=== PATIENT | male | born 1995 | race Caucasian/White ===

== ENCOUNTER 2025-10-22 18:50 | Observation (INO) | payer SELFPAY ==
[2025-10-22 18:54] VITALS: BP 163/60; PULSE 90; RESP 20; TEMP 36.8; O2SAT 97; BMI 49.6
--- NOTE | 2025-10-22 19:10 | CT_ITS ---
PROCEDURE INFORMATION: Exam: CT Abdomen And Pelvis With Contrast Exam date and time: 10/22/2025 7:59 PM Age: 29 years old Clinical indication: Abdominal pain; Additional info: Bilateral flank pain, pyelo v ureterolithiasis TECHNIQUE: Imaging protocol: Computed tomography of the abdomen and pelvis with contrast. Radiation optimization: All CT scans at this facility use at least one of these dose optimization techniques: automated exposure control; mA and/or kV adjustment per patient size (includes targeted exams where dose is matched to clinical indication); or iterative reconstruction. Contrast material: ISOVUE; Contrast volume: 75 ml; Contrast route: IV; COMPARISON: No relevant prior studies available. FINDINGS: Liver: Diffuse hypoattenuation of the liver compatible with mild hepatic steatosis. Gallbladder and biliary ducts: Normal. No calcified stones. No ductal dilation. Pancreas: Normal. No ductal dilation. Spleen: Normal. No splenomegaly. Adrenal glands: Normal. No mass. Kidneys and ureters: No nephrolithiasis or calcific densities of the renal collecting system. No hydronephrosis. Normal and symmetric enhancement of the kidneys. Stomach and bowel: Unremarkable. No obstruction. No mucosal thickening. Appendix: No evidence of appendicitis. Intraperitoneal space: Unremarkable. No free air. No significant fluid collection. Vasculature: Unremarkable. No abdominal aortic aneurysm. Lymph nodes: Unremarkable. No enlarged lymph nodes. Urinary bladder: Unremarkable as visualized. Reproductive: Unremarkable as visualized. Bones/joints: Unremarkable. No acute fracture. Soft tissues: Normal. IMPRESSION: No nephrolithiasis or calcific densities of the renal collecting system. No hydronephrosis. Normal and symmetric enhancement of the kidneys.
--- NOTE | 2025-10-22 19:13 | HMH.EDGENADL ---
Discharge Plan Referrals Follow up/Referrals: Provider,Referral, [Primary Care Provider, Medical] - See instructions Clinical Impressions Clinical Impression: Acute pyelonephritis Instructions Patient Instructions: DI for Low Back Pain Print Language Print Language: Divehi Discharge ED Provider: Dayday Sy General Adult HPI General Chief complaint: Back Pain/Injury Stated complaint: lower back pain reoccuring nauseated Time Seen by Provider: 10/22/25 19:04 Mode of Arrival: Ambulatory Source of Information: Patient and Spouse Description of Symptoms (Recalled from ER Triage Doc. by RN): patient presents to the ED for bilateral flank pain that started Friday. he went to [facility] and the only thing they did was a urine test, d/c him with antibiotics qwhich hes been taking as prescribed. he has been taking naproxen and ibuprofen around the clock. initially it was just right sided, but now its bilateral. he rates the pain a 9/10 and stated he has had severe nausea and extremly painful urination since his initial ED visit. History of Present Illness HPI narrative: Adriel Causey is a 29-year-old male who presents to the emergency department for complaints of bilateral flank pain. Patient states that over the last 3 weeks, he has had worsening pain with urination and progressively worsening back pain. He states that he was seen on Friday at [facility] where they only tested his urine and told him he had a kidney infection. He has been taking levofloxacin and alternating naproxen and ibuprofen since then without relief. He states that now, he has pain on both sides of his back and it has kept him from sleeping. He has no relief with NSAIDs. He denies any fever. He reports dark urine and has significant burning with urination. He denies any history of urinary tract fractions prior to this. He also reports some mild upper abdominal pain. He states that he previously drank alcohol but has not drank recently. He does smoke tobacco. Related Data Allergies Allergy/AdvReac Type Severity Reaction Status Date / Time From [facility] Allergy Unknown I-RASH Uncoded 10/28/17 14:56 [facility] Disclaimer: The information contained in this section may have been updated after the patient was seen, as this information can be updated by other users. Social History Smoking Status: Current every day smoker alcohol intake: former current occupational status: employed Travel in the last 8 weeks?: None ROS Obtained: Yes Systems reviewed as appropriate & no additional complaints except as documented Physical Exam General General appearance: alert Comment: Appears uncomfortable Head Head exam: atraumatic Eye Eye exam: Present normal appearance ENT ENT exam: Present normal external ear exam Neck Neck exam: Present full ROM Chest Chest inspection: Present symmetric chest wall rise Respiratory Respiratory exam: Present normal lung sounds bilaterally; Absent respiratory distress, wheezes or stridor Cardiovascular Cardiovascular exam: Present regular rate and normal rhythm Abdominal Exam Abdominal exam: Present soft; Absent tenderness or guarding exam: Present deferred Extremities Exam Extremities exam: Present normal inspection Back Exam Back exam: Present normal inspection, CVA tenderness (R) and CVA tenderness (L) Neurological Exam Neurological exam: Present alert and oriented X3 Psychiatric Psychiatric exam: Present normal affect Skin Skin exam: Present warm and dry Medical Decision Making Medical Records Screening: Per USPSTF and CDC recommendations, given the prevalence of disease in our region, it is our hospital?s policy to screen for HIV and viral Hepatitis for all patients aged 18 and over and those with ongoing risk factors. Neftali Inquiry Pt receiving controlled substance: No Vital Signs: 10/22/25 18:54 10/22/25 19:30 10/22/25 19:31 Temperature 98.2 F Temperature Source Oral Pulse Rate 88 86 Pulse Rate [Right Radial] 90 Respiratory Rate 20 Blood Pressure Blood Pressure [Right Arm] 163/60 H Blood Pressure Mean Blood Pressure Mean [Right Arm] 94 Blood Pressure Source [Right Arm] Automatic Cuff Blood Pressure Position [Right Arm] Sitting 02 Sat by Pulse Oximetry 97 96 98 Oxygen Delivery Method Room Air Room Air Room Air 10/22/25 19:31 10/22/25 20:04 Temperature Temperature Source Pulse Rate 94 H Pulse Rate [Right Radial] Respiratory Rate Blood Pressure 141/44 H Blood Pressure [Right Arm] Blood Pressure Mean 76 Blood Pressure Mean [Right Arm] Blood Pressure Source [Right Arm] Blood Pressure Position [Right Arm] 02 Sat by Pulse Oximetry 95 Oxygen Delivery Method Room Air Lab Data Lab Results 10/22/25 19:04: Urine Color Yellow, Urine Appearance Clear, Urine pH 7.0, Ur Specific [place] 1.025, Urine Protein Negative, Urine Glucose (UA) Negative, Urine Ketones Negative, Urine Blood Trace-i, Urine Nitrate Negative, Urine Bilirubin Negative, Urine Urobilinogen 0.2, Ur Leukocyte Esterase 2+ A, Urine RBC Occasional, Urine WBC 10-20, Ur Squamous Epith Cells None, Urine Bacteria Trace, Urine Trichomonas 1+ 10/22/25 19:12: WBC 14.0 H, RBC 4.91, Hgb 14.8, Hct 44.8, MCV 91.2, MCH 30.1, MCHC 33.0, RDW 13.3, Plt Count 393, MPV 9.7, Neut % (Auto) 71.7, Lymph % (Auto) 18.1, [place] % (Auto) 7.1, Eos % (Auto) 2.1, Baso % (Auto) 0.4, Neut # (Auto) 10.0 H, Lymph # (Auto) 2.5, [place] # (Auto) 1.0, Eos # (Auto) 0.3, Baso # (Auto) 0.1, Sodium 141, Potassium 3.8, Chloride 105, Carbon Dioxide 26, Anion Gap 13.8, BUN 17, Creatinine 1.10, Estimated Creat Clear 79, Estimated GFR 79, Est GFR ( Amer) 95, Glucose 107 H, Calcium 8.9, Total Bilirubin 0.4, AST 37, ALT 46, Alkaline Phosphatase 102, C-Reactive Protein 18.4 H, Total Protein 8.5 H, Albumin 5.0, Globulin 3.5 H, Albumin/Globulin Ratio 1.4, Lipase 66 10/22/25 19:30: Lactate 0.8 10/22/25 19:12 10/22/25 19:12 Orders (Tests/Meds): ED MEDICATIONS Generic Name Dose Route Start Last Admin Trade Name Freq PRN Reason Stop Dose Admin Ceftriaxone Sodium 2 gm/ 100 mls @ 200 mls/hr 10/22/25 20:49 Sodium Chloride IV 10/22/25 21:18 ONCE ONE Sodium Chloride 10 ml 10/22/25 20:00 10/22/25 20:01 Sodium Chloride 0.9% 10ml Syr (Rad Only) IV 11/21/25 19:59 10 ml NEEDED PRN Administration Maintain IV Site Discontinued Medications Generic Name Dose Route Start Last Admin Trade Name Freq PRN Reason Stop Dose Admin Hydromorphone HCl 0.25 mg 10/22/25 19:10 10/22/25 19:28 Hydromorphone 2mg/Ml Syringe IV 10/22/25 19:11 0.25 mg ONCE ONE Administration Hydromorphone HCl 0.5 mg 10/22/25 20:46 Hydromorphone 2mg/Ml Syringe IV 10/22/25 20:47 ONCE ONE Lactated Ringer's 1,000 mls @ 999 mls/hr 10/22/25 19:14 10/22/25 20:42 Lactated Ringer's 1000 Ml Bag IV 10/22/25 20:14 Infused .Q1H1M ONE Infusion Iopamidol 75 ml 10/22/25 20:00 10/22/25 20:01 Iopamidol-370 (76%);100ml Bottle IV 10/22/25 20:01 75 ml ONCE ONE Administration Metronidazole 2,000 mg 10/22/25 20:49 Metronidazole 500 Mg Tablet PO 10/22/25 20:50 ONCE ONE Ondansetron HCl 4 mg 10/22/25 19:13 10/22/25 19:29 Ondansetron 4mg/2ml Vial IV 10/22/25 19:14 4 mg ONCE ONE Administration ORDERS Category Date Time Status CT abdomen pelvis w con Stat Cat Scan 10/22/25 19:10 Completed CBC w/Auto Diff [Complete Blood Count Auto Diff] Stat Lab 10/22/25 19:12 Completed CMP [Comprehensive Metabolic Panel] Stat Lab 10/22/25 19:12 Completed CRP [C-Reactive Protein] Stat Lab 10/22/25 19:12 Completed Lactic Acid Stat Lab 10/22/25 19:30 Completed Lipase Stat Lab 10/22/25 19:12 Completed UA [Urinalysis and Microscopic] Stat Lab 10/22/25 19:04 Completed Urine Chlam/Gono/Trich ([facility]) Stat Lab 10/22/25 19:04 Received Blood Culture Stat Micro 10/22/25 20:51 Ordered Urine Culture Stat Micro 10/22/25 19:04 Received Medical Decision Narrative: Adriel Causey is a 29-year-old male who presents to the emergency department for complaints of bilateral flank pain. Patient states that over the last 3 weeks, he has had worsening pain with urination and progressively worsening back pain. He states that he was seen on Friday at [facility] where they only tested his urine and told him he had a kidney infection. He has been taking levofloxacin and alternating naproxen and ibuprofen since then without relief. He states that now, he has pain on both sides of his back and it has kept him from sleeping. He has no relief with NSAIDs. He denies any fever. He reports dark urine and has significant burning with urination. He denies any history of urinary tract fractions prior to this. He also reports some mild upper abdominal pain. He states that he previously drank alcohol but has not drank recently. He does smoke tobacco. On arrival, patient is somewhat hypertensive, heart rate within normal limits, afebrile, breathing carefully on room air with oxygen saturation 97% SpO2. Physical exam, stated above, revealed an uncomfortable appearing male in no respiratory distress. He has bilateral CVA tenderness. No abdominal tenderness to palpation. No abdominal rigidity. Cardiopulmonary exam is unremarkable. Differential diagnosis includes, but is not limited to: Pyelonephritis, ureterolithiasis, acute pancreatitis, GERD, musculoskeletal pain, among others. The most morbid conditions were considered and workup was based on these. Workup in the emergency department included: Hematologic labs, urine studies, CT abdomen pelvis with IV contrast. Patient was hesitant to take any pain medication and preferred to not have morphine due to the way it made him feel. Patient is agreeable to small dose of Dilaudid and Zofran at this time. Will administer 1 L lactated ringer as well. Patient's urinalysis shows a trace blood, nitrite negative with 2+ leukocyte esterase, 10-20 white blood cells, trace bacteria and 1+ urine trichomonas. Will add urine gonorrhea, chlamydia and trichomonas at this time. Laboratory studies show leukocytosis with white blood cell count of 14 but no neutrophilia. Hemoglobin and platelets within normal limits. Patient's CRP is elevated 18.4. Lipase normal at 66. Electrolytes and renal function within normal limits. CT abdomen pelvis with IV contrast was interpreted by me personally. No acute findings, specifically no perinephric fat stranding and no ureterolithiasis/hydronephrosis. See radiology report for details. On reassessment, patient states that he is still in significant pain. He is agreeable with additional pain medicine. Will give 0.5 mg of IV Dilaudid. Urine cultures from outside hospital were obtained and had no significant growth on day 2 (10/19). I do feel that patient symptomatology is most consistent with urinary tract infection given significant white blood cells, and leukocyte esterase positive. Could also be a component of trichomonas. Will treat with 2 g of IV Rocephin and 2 g of oral metronidazole. Patient significant other at the bedside will also be given a paper prescription for treatment of trichomonas with a 7-day course of metronidazole twice daily. I do feel that since patient has failed outpatient treatment with oral antibiotics and shows evidence of continued UTI and concern for pyelonephritis clinically with an elevated white blood cell count, I do feel that he would benefit from admission for continued IV antibiotics. He is in agreement with this plan. I did speak with Colette Singer, SHAYNA with the hospital medicine service for admission who is in agreement to admit the patient for further management. Critical Care Critical Care Time Critical Care Time: No
[2025-10-22 19:16] LABS: Microscopic, Urine URINE MICROSCOPIC (MICROSCOPIC)
[2025-10-22 19:17] LABS: Bilirubin,Urine Negative (Negative); Color,Urine YELLOW (Yellow); Glucose,Urine (UA) Negative (Negative); Ketones,Urine Negative (Negative); Leukocyte Esterase,Urine 2+ (Negative); PH,Urine 7.0 (5.0-8.5); Protein,Urine Negative (Negative); Specific Gravity, Urine 1.025 (1.005-1.030); Urobilinogen,Urine 0.2 EU/dl (0.2)
[2025-10-22 19:19] LABS: Hematocrit 44.8 % (42.0-52.0); Hemoglobin 14.8 g/dL (14.1-18.0); Immature Granulocytes % 0.6 %; Mean Corpuscular HGB Conc 33.0 g/dL (31.8-35.4); Mean Corpuscular Hemoglobin 30.1 pg (27.0-31.2); Mean Corpuscular Volume 91.2 fl (80-94); Nucleated Red Blood Cells % 0 %; Platelet Count 393 K/mm3 (142-424); Red Blood Count 4.91 M/mm3 (4.60-6.20); Red Cell Distribution Width-SD 44.9 fL; White Blood Count 14.0 K/mm3 (4.8-10.8)
[2025-10-22] MEDS: HYDROMORPHONE 2MG/ML SYRINGE 0.25 MG IV (19:28)
[2025-10-22] MEDS: LACTATED RINGERS 1000ML 1,000 ML 999 ML IV (19:29)
[2025-10-22] MEDS: ONDANSETRON 4MG/2ML VIAL 4 MG IV (19:29)
[2025-10-22 19:30] VITALS: PULSE 88; O2SAT 96
[2025-10-22 19:31] VITALS: BP 141/44; PULSE 86; O2SAT 98
[2025-10-22 19:32] LABS: Albumin Level 5.0 g/dl (3.5-5.0); Chloride 105 mmol/L (98-107); Potassium 3.8 mmoL/L (3.5-5.1); Sodium 141 mmol/L (136-145)
[2025-10-22 19:34] LABS: Blood Urea Nitrogen 17 mg/dl (9-20); Creatinine Clearance Estimated 79 mL/min (50-200); Creatinine,Serum 1.10 mg/dl (0.66-1.25); Estimated Glomerular Filt Rate 79 ml/min (>60); GFR (African American) 95 ML/MIN (>60)
[2025-10-22 19:35] LABS: Alanine Aminotransferase 46 U/L (12-78); Albumin/Globulin Ratio 1.4 (1.1-1.8); Alkaline Phosphatase 102 U/L (38-126); Anion Gap 13.8 mEq/L (5-15); Aspartate Amino Transferase 37 U/L (17-59); Bilirubin,Total 0.4 mg/dl (0.2-1.3); Calcium 8.9 mg/dl (8.4-10.2); Carbon Dioxide 26 mmol/L (22.0-30.0); Globulin 3.5 g/dL (1.3-3.2); Glucose 107 mg/dl (74-100); Lipase 66 U/L (23-300); Total Protein,Serum 8.5 g/dl (6.3-8.2)
[2025-10-22 19:40] LABS: Bacteria,Urine Trace /lpf; RBC,Urine Occasional #/hpf (0-3); Trichomonas,Urine 1+ /lpf
[2025-10-22 19:41] LABS: C-Reactive Protein 18.4 mg/L (0-4)
[2025-10-22] MEDS: SODIUM CHLORIDE 0.9% 10ML SYR (RAD ONLY) 10 ML IV (20:01)
[2025-10-22] MEDS: IOPAMIDOL-370 (76%);100ML BOTTLE 75 ML IV (20:01)
[2025-10-22 20:04] VITALS: PULSE 94; O2SAT 95
[2025-10-22] MEDS: HYDROMORPHONE 2MG/ML SYRINGE 0.5 MG IV (21:05)
--- NOTE | 2025-10-22 21:27 | P.HP_ITS ---
<Statement entered by Adriel Prasad MD - 10/23/25 10:22> Rounded on patient after nurse practitioner. Personally examined and interviewed patient. Agree with exam findings and care plan as documented. History of Present Illness *Admission Date: 10/22/25 *Reason for visit:: Flank pain and dysuria *History of present illness: 29-year-old male patient presents to ER with reports of low back pain, dark color and strong odor to his urine. For low back pain initially was on the right in the flank area and now goes across both sides of the lower back. Denies fever chills or bodyaches. Has had some nausea and some epigastric pain which she states has been going on for a while. States he has been able to eat and drink okay. Symptoms started about 3 weeks ago. Was seen at an outside hospital emergency department and given Levaquin after being diagnosed with UTI. Reportedly cultures from that visit were negative. Symptoms did not improve and in fact he feels like they have worsened so he came in for further evaluation. He was found to have leukocyte esterase in his urine as well as trichomonas. CT of the abdomen pelvis shows no nephrolithiasis and no hydronephrosis. He is afebrile. ER physician requests admission for failed outpatient treatment of UTI which progressed to pyelonephritis. [facility] Disclaimer: The information contained in this section may have been updated after the patient was seen, as this information can be updated by other users. Medical History (Updated 10/22/25 @ 21:42 by Colette Singer APRN) No significant medical problems Surgical History (Updated 10/22/25 @ 21:32 by Colette Singer APRN) No significant past surgical history Family History (Updated 10/22/25 @ 21:33 by Colette Singer APRN) Father Cancer Other Diabetes Social History (Updated 10/22/25 @ 21:10 by Dayday Sy MD) Smoking Status: Current every day smoker alcohol intake: former current occupational status: employed Travel in the last 8 weeks?: None Have you lived/traveled outside [place] in past 30 days?: No Contact w/someone who lives/traveled outside [place] past 30 days?: No Exposure to someone with infectious disease in past 14 days?: No Do you have a fever (greater than 100.4 F or 38 C)?: No Have you tested positive for COVID-19?: No Exposed to someone with COVID-19 in past 14 days?: No Do you have a sore throat?: No Do you have a cough?: No Do you have any weakness?: No Do you have any diarrhea?: No Are you experiencing any unusual bleeding?: No Do you have any muscle aches/pain?: No Do you have any abdominal pain?: No Are you experiencing loss of taste or smell?: No Review of Systems Constitutional Constitutional: Denies body ache(s), Denies chills and Denies fever(s) Eyes Eyes: Denies blurry vision ENT Ears, Nose, Mouth, and Throat: Denies dizziness, Denies otalgia and Denies sore throat *Cardiovascular Cardiovascular: Denies chest pain and Denies dyspnea *Respiratory Respiratory: Denies cough and Denies dyspnea *Gastrointestinal Gastrointestinal: Reports abdominal pain (Complains of epigastric abdominal pain into the right upper quadrant) and Reports dyspepsia *Genitourinary Genitourinary: Reports dysuria and Reports other (Reports tea-colored urine with a foul odor and flank pain) *Musculoskeletal Musculoskeletal: Denies arthralgias and Reports back pain (Bilateral flank pain) *Neurologic Neurologic: Denies confusion and Denies dizziness Psychiatric Psychiatric: Denies confusion Meds Home Medications and Allergies Home Medications ?Medication ?Instructions ?Recorded ?Confirmed ?Type levofloxacin 250 mg tablet 500 mg PO DAILY 10/22/25 History naproxen 500 mg tablet 500 mg PO BID 10/22/2510/22 History New Prescriptions to Start Prescriptions: Allergies Allergy/AdvReac Type Severity Reaction Status Date / Time From [facility] Allergy Unknown I-RASH Uncoded 10/28/17 14:56 Exam Data for Last 24 hours Vital signs and Labs for Last 24 Hours: Temp Pulse Resp BP Pulse Ox O2 Del Method 98.2 F 94 H 20 141/44 H 95 Room Air 10/22/25 18:54 10/22/25 20:04 10/22/25 18:54 10/22/25 19:31 10/22/25 20:04 10/22/25 20:04 Laboratory Results - last 24 hr 10/22/25 19:04: Urine Color Yellow, Urine Appearance Clear, Urine pH 7.0, Ur Specific [place] 1.025, Urine Protein Negative, Urine Glucose (UA) Negative, Ur ine Ketones Negative, Urine Blood Trace-i, Urine Nitrate Negative, Urine Bilirubin Negative, Urine Urobilinogen 0.2, Ur Leukocyte Esterase 2+ A, Urine RBC Occasional, Urine WBC 10-20, Ur Squamous Epith Cells None, Urine Bacteria Trace, Urine Trichomonas 1+ 10/22/25 19:12: WBC 14.0 H, RBC 4.91, Hgb 14.8, Hct 44.8, MCV 91.2, MCH 30.1, MCHC 33.0, RDW 13.3, Plt Count 393, MPV 9.7, Neut % (Auto) 71.7, Lymph % (Auto) 18.1, [place] % (Auto) 7.1, Eos % (Auto) 2.1, Baso % (Auto) 0.4, Neut # (Auto) 10.0 H, Lymph # (Auto) 2.5, [place] # (Auto) 1.0, Eos # (Auto) 0.3, Baso # (Auto) 0.1, Sodium 141, Potassium 3.8, Chloride 105, Carbon Dioxide 26, Anion Gap 13.8, BUN 17, Creatinine 1.10, Estimated Creat Clear 79, Estimated GFR 79, Est GFR ( Amer) 95, Glucose 107 H, Calcium 8.9, Total Bilirubin 0.4, AST 37, ALT 46, Alkaline Phosphatase 102, C-Reactive Protein 18.4 H, Total Protein 8.5 H, Albumin 5.0, Globulin 3.5 H, Albumin/Globulin Ratio 1.4, Lipase 66 10/22/25 19:30: Lactate 0.8 I & O for Last 24 hours: Intake & Output 10/19/25 10/20/25 10/21/25 10/22/25 23:59 23:59 23:59 23:59 Intake Total 1000 / 1000 Balance 1000 / 1000 Weight 127.006 kg Constitutional Constitutional: no acute distress *Routine HEENT Exam Head: Present normocephalic and atraumatic Eye: Present PERRL ENT: Present mucous membranes moist *Routine Neck Exam Neck: Present supple *Routine Respiratory Exam Respiratory: Present CTA bilaterally *Routine Cardiovascular Exam Cardiovascular: Present RRR, Normal S1 and Normal S2 *Routine Abdominal Exam Abdominal: Present soft, normoactive bowel sounds and tenderness (Tender epigastric and right upper quadrant, tender to pannus to palpation of the bilateral flank) *Routine Rectal Exam Rectal:: deferred *Routine Genitalia Exam Genitalia:: deferred *Routine Extremities Exam Extremities: Present pulses intact; Absent edema *Routine Skin Exam Skin: Present dry and warm *Routine Neurological Exam Neurological: Present alert, oriented X3 and moving all extremities H&P: Result Impressions CT the abdomen pelvis reviewed as well as the report shows no nephrolithiasis or hydronephrosis normal kidneys. C-reactive protein elevated 18.4, lipase 66, lactate 0.8 Urinalysis 2+ leukocyte Estrace is 1+ trichomonas, trace blood Assessment and Plan *Assessment and plan (1) Acute pyelonephritis: Status: Acute Category: Medical Code(s): N10 - Acute pyelonephritis (2) Infection due to trichomonas: Status: Acute Category: Medical Code(s): A59.9 - Trichomoniasis, unspecified (3) Epigastric pain: Status: Acute Category: Medical Code(s): R10.13 - Epigastric pain Plan Patient presented with continued urinary symptoms and worsening flank pain after treatment for UTI with Levaquin. Denies fever or chills however laboratory studies show evidence of UTI as well as infection with trichomonas. After discussion with the ER physician I have agreed to accept the patient for admission. He will need IV antibiotics as well as IV fluids. Has required IV pain medication in the ER. Acute pyelonephritis?failed outpatient treatment?received 1 L LR and 2 g Rocephin in the ER. Will continue 2 g of Rocephin daily. Will give 1 more liter of LR. He is eating and drinking well so should be able to stop IV fluids after that. I have ordered ketorolac for pain. If pain is still not controlled we can give additional Dilaudid. Blood cultures and urine cultures are pending. Urine cultures from outside facility were negative as of 10/19/2025 Trichomonas infection?metronidazole oral given in the ER. Partner was also treated. Epigastric pain?incidentally patient does report some epigastric pain into the right upper quadrant. He states he notices after he eats any kind of foods. He does have tenderness in the epigastric area as well as worsening pain in the right upper quadrant with a deep breath. He believes this is heartburn. Will give him IV pantoprazole tonight and continue oral tomorrow. Lovenox for DVT prophylaxis.
[2025-10-22 21:28] VITALS: BP 136/71; PULSE 91; RESP 18; TEMP 36.7; O2SAT 97
--- NOTE | 2025-10-22 21:36 | PC.NURSE ---
Patient arrived to floor via wheelchair from ED at 21:34.
[2025-10-22 21:47] VITALS: BP 139/71; PULSE 76; RESP 16; TEMP 36.6; O2SAT 97; BMI 53.9
[2025-10-22] MEDS: KETOROLAC 15MG/ML VIAL 15 MG IV (22:11)
[2025-10-22] MEDS: PANTOPRAZOLE SODIUM 40 MG in 0.9 % SODIUM CHLORIDE 100 ML 100 MG IV (22:12)
[2025-10-22] MEDS: LACTATED RINGERS 1000ML 1,000 ML 100 ML IV (22:12)
[2025-10-23] MEDS: NICOTINE 21MG/24HR PATCH 21 MG TD ×2 (00:09→09:56)
[2025-10-23] MEDS: HYDROMORPHONE 2MG/ML SYRINGE 0.5 MG IV ×3 (00:10→09:55)
[2025-10-23 04:00] VITALS: BP 121/53; PULSE 80; RESP 14; TEMP 36.4; O2SAT 96; BMI 53.9
[2025-10-23 07:28] LABS: Hematocrit 40.5 % (42.0-52.0); Immature Granulocytes % 0.4 %; Mean Corpuscular HGB Conc 32.3 g/dL (31.8-35.4); Mean Corpuscular Hemoglobin 29.8 pg (27.0-31.2); Mean Corpuscular Volume 92.3 fl (80-94); Nucleated Red Blood Cells % 0 %; Platelet Count 326 K/mm3 (142-424); Red Blood Count 4.39 M/mm3 (4.60-6.20); Red Cell Distribution Width-SD 45.9 fL; White Blood Count 11.1 K/mm3 (4.8-10.8)
[2025-10-23 07:40] LABS: Hemoglobin 13.0 g/dL (14.1-18.0)
[2025-10-23 07:47] VITALS: BP 115/70; PULSE 81; RESP 20; TEMP 37.2; O2SAT 98
[2025-10-23 07:56] LABS: Chloride 107 mmol/L (98-107)
[2025-10-23 07:57] LABS: Potassium 3.8 mmoL/L (3.5-5.1); Sodium 136 mmol/L (136-145)
[2025-10-23 07:59] LABS: Alanine Aminotransferase 33 U/L (12-78); Aspartate Amino Transferase 21 U/L (17-59); Blood Urea Nitrogen 20 mg/dl (9-20); Creatinine Clearance Estimated 83 mL/min (50-200); Creatinine,Serum 1.00 mg/dl (0.66-1.25); Estimated Glomerular Filt Rate 88 ml/min (>60); GFR (African American) 106 ML/MIN (>60)
[2025-10-23 08:00] LABS: Alkaline Phosphatase 89 U/L (38-126); Bilirubin,Total 0.2 mg/dl (0.2-1.3); Calcium 8.3 mg/dl (8.4-10.2); Glucose 104 mg/dl (74-100); Total Protein,Serum 6.7 g/dl (6.3-8.2)
--- NOTE | 2025-10-23 08:55 | HMH.PHAAMS2 ---
- Antimicrobial Stewardship Review culture & sensitivity review Stewardship interventions: culture & sensitivity review, reviewed - no change Comments: URINE CX PENDING, PATIENT STARTED ON ROCEPHIN BY EMPIRICALLY FOR PYELONEPHRITIS. WBC IMPROVED TODAY FROM 14.0 K/mm3 TO 11.1 K/mm3, AFEBRILE.
[2025-10-23] MEDS: PANTOPRAZOLE 40MG TABLET 40 MG PO (09:56)
[2025-10-23] MEDS: DEXAMETHASONE 4MG/ML 1ML VIAL 8 MG IV (09:56)
[2025-10-23] MEDS: LACTATED RINGERS 1000ML 1,000 ML 100 ML IV (09:57)
--- NOTE | 2025-10-23 09:59 | HMH.PHAINT1 ---
Pharmacy Intervention Comments: MEDICATION RECONCILIATION COMPETE USING EXTERNAL PHARMACY FILL HISTORY.
[2025-10-23 10:16] LABS: Albumin Level 3.9 g/dl (3.5-5.0); Albumin/Globulin Ratio 1.4 (1.1-1.8); Anion Gap 7.8 mEq/L (5-15); Carbon Dioxide 25 mmol/L (22.0-30.0); Globulin 2.8 g/dL (1.3-3.2)
[2025-10-23 11:29] LABS: Hepatitis C Ab Qual. W/ RFX NEGATIVE (Negative)
--- NOTE | 2025-10-23 14:22 | EXP.DC.SUM ---
General Admission date:: 10/22/25 Discharge date: 10/23/25 HPI HPI HPI: 29-year-old male patient presents to ER with reports of low back pain, dark color and strong odor to his urine. For low back pain initially was on the right in the flank area and now goes across both sides of the lower back. Denies fever chills or bodyaches. Has had some nausea and some epigastric pain which she states has been going on for a while. States he has been able to eat and drink okay. Symptoms started about 3 weeks ago. Was seen at an outside hospital emergency department and given Levaquin after being diagnosed with UTI. Reportedly cultures from that visit were negative. Symptoms did not improve and in fact he feels like they have worsened so he came in for further evaluation. He was found to have leukocyte esterase in his urine as well as trichomonas. CT of the abdomen pelvis shows no nephrolithiasis and no hydronephrosis. He is afebrile. ER physician requests admission for failed outpatient treatment of UTI which progressed to pyelonephritis. Hospital Course Hospital Course Hospital Course: 29-year-old male who presented to the ER with complaint of dysuria and back pain. Being treated for UTI with Levaquin. No fever or chills. Urinalysis in the ER concerning for trichomonas. After discussion with the ER provider, admitted to medicine for IV antibiotics and further management. Feeling better by morning. Dysuria improving. Back pain vocalizes to paralumbar musculature. Concerned this is more low back strain/lumbago with no sciatic symptoms then reflection of his urinary tract infection. Struggles with back pain at baseline but is gotten worse recently. In light of this and his clinical improvement, will transition back to oral antibiotics discharge home with encouragement to follow-up with a primary care provider as an outpatient. Patient stable at discharge. Problems addressed as follows: Acute pyelonephritis ruled out Urinary tract infection Trichomonas urethritis - Urinalysis found to be positive for trichomonas. Currently being treated for UTI. Concern that patient had possible pyelonephritis on admission. Imaging did not show any stranding or inflammation of kidneys. Patient did not have CVA tenderness on exam. Tenderness is point tenderness in his lower back in the paraspinal musculature. Treated with metronidazole 2 g once for his trichomonas on admission. Feeling better by morning with resolving dysuria. Recommend completing course of Levaquin for his other UTI component. Tolerating p.o. intake, stable to discharge home. Musculoskeletal low back pain -Treated with anti-inflammatories, opiates and a dose of dexamethasone during admission. Will continue 5 days of dexamethasone 4 mg oral and short course of hydrocodone for severe breakthrough pain. Encouraged Tylenol and ibuprofen as tolerated for pain. Encouraged mobility and stretching exercises for her back. Discussed referring to physical therapy, at this time patient has no insurance and declined this route of treatment. Recommend he follow-up with a primary care provider if pain continues to persist. Exam Data for Last 24 hours Vital signs and Labs for Last 24 Hours: Temp Pulse Resp BP Pulse Ox O2 Del Method 98.9 F 81 20 115/70 98 Room Air 10/23/25 07:47 10/23/25 07:47 10/23/25 07:47 10/23/25 07:47 10/23/25 07:47 10/23/25 11:00 Laboratory Results - last 24 hr 10/22/25 19:04: Urine Color Yellow, Urine Appearance Clear, Urine pH 7.0, Ur Specific [place] 1.025, Urine Protein Negative, Urine Glucose (UA) Negative, Urine Ketones Negative, Urine Blood Trace-i, Urine Nitrate Negative, Urine Bilirubin Negative, Urine Urobilinogen 0.2, Ur Leukocyte Esterase 2+ A, Urine RBC Occasional, Urine WBC 10-20, Ur Squamous Epith Cells None, Urine Bacteria Trace, Urine Trichomonas 1+, Ur C. trach DNA (PCR) Negative, U N.gonorrhoeae DNA PCR Negative, T. vaginalis (PCR) Positive A 10/22/25 19:12: WBC 14.0 H, RBC 4.91, Hgb 14.8, Hct 44.8, MCV 91.2, MCH 30.1, MCHC 33.0, RDW 13.3, Plt Count 393, MPV 9.7, Neut % (Auto) 71.7, Lymph % (Auto) 18.1, [place] % (Auto) 7.1, Eos % (Auto) 2.1, Baso % (Auto) 0.4, Neut # (Auto) 10.0 H, Lymph # (Auto) 2.5, [place] # (Auto) 1.0, Eos # (Auto) 0.3, Baso # (Auto) 0.1, Sodium 141, Potassium 3.8, Chloride 105, Carbon Dioxide 26, Anion Gap 13.8, BUN 17, Creatinine 1.10, Estimated Creat Clear 79, Estimated GFR 79, Est GFR ( Amer) 95, Glucose 107 H, Calcium 8.9, Total Bilirubin 0.4, AST 37, ALT 46, Alkaline Phosphatase 102, C-Reactive Protein 18.4 H, Total Protein 8.5 H, Albumin 5.0, Globulin 3.5 H, Albumin/Globulin Ratio 1.4, Lipase 66 10/22/25 19:30: Lactate 0.8 10/23/25 06:20: WBC 11.1 H, RBC 4.39 L, Hgb 13.0 L D, Hct 40.5 L, MCV 92.3, MCH 29.8, MCHC 32.3, RDW 13.4, Plt Count 326, MPV 10.0, Neut % (Auto) 59.0, Lymph % (Auto) 24.1, [place] % (Auto) 12.5 H, Eos % (Auto) 3.5, Baso % (Auto) 0.5, Neut # (Auto) 6.5, Lymph # (Auto) 2.7, [place] # (Auto) 1.4 H, Eos # (Auto) 0.4, Baso # (Auto) 0.1, Sodium 136, Potassium 3.8, Chloride 107, Carbon Dioxide 25, Anion Gap 7.8, BUN 20, Creatinine 1.00, Estimated Creat Clear 83, Estimated GFR 88, Est GFR ( Amer) 106, Glucose 104 H, Calcium 8.3 L, Total Bilirubin 0.2, AST 21 D, ALT 33 D, Alkaline Phosphatase 89, Total Protein 6.7, Albumin 3.9 D, Globulin 2.8, Albumin/Globulin Ratio 1.4, HCV Ab ALEJANDRO w/Rflx PCR Qn Negative, HIV Ag/Ab Combo Qual Negative I & O for Last 24 hours: Intake & Output 10/20/25 10/21/25 10/22/25 10/23/25 23:59 23:59 23:59 23:59 Intake Total 1200 / 1200 2160 / 2160 Output Total 0 / 0 Balance 1200 / 1200 2160 / 2160 Weight 138.164 kg 138.164 kg Constitutional Constitutional: no acute distress, morbidly obese and cooperative *Routine HEENT Exam Head: Present normocephalic Eye: Present EOMI and PERRL ENT: Present mucous membranes moist *Routine Neck Exam Neck: Present supple; Absent lymphadenopathy *Routine Respiratory Exam Respiratory: Present CTA bilaterally; Absent rhonchi or wheezes *Routine Cardiovascular Exam Cardiovascular: Present RRR *Routine Abdominal Exam Abdominal: Present soft and normoactive bowel sounds; Absent tenderness *Routine Rectal Exam Patient deferred: visual exam *Routine Exam Patient deferred: penile exam *Routine Extremities Exam Extremities: Absent cyanosis, clubbing or edema Routine Back/Spine/Pelvis Exam Back/Spine: Present paraspinal tenderness (Lower lumbar region with tenderness to palpation.; Mild pain in back with leg raise bilaterally but no pain down his legs with leg raise.) *Routine Skin Exam Skin: Present intact and warm; Absent rash *Routine Neurological Exam Neurological: Present alert, oriented X3 and moving all extremities; Absent sensory deficit or motor deficit Results Data Completed and Pending Labs on day of discharge: Labs from last 24 hours 10/23/25 10/22/25 10/22/25 06:20 19:30 19:12 WBC 11.1 H 14.0 H RBC 4.39 L 4.91 Hgb 13.0 L D 14.8 Hct 40.5 L 44.8 MCV 92.3 91.2 MCH 29.8 30.1 MCHC 32.3 33.0 RDW 13.4 13.3 Plt Count 326 393 MPV 10.0 9.7 Neut % (Auto) 59.0 71.7 Lymph % (Auto) 24.1 18.1 [place] % (Auto) 12.5 H 7.1 Eos % (Auto) 3.5 2.1 Baso % (Auto) 0.5 0.4 Neut # (Auto) 6.5 10.0 H Lymph # (Auto) 2.7 2.5 [place] # (Auto) 1.4 H 1.0 Eos # (Auto) 0.4 0.3 Baso # (Auto) 0.1 0.1 Sodium 136 141 Potassium 3.8 3.8 Chloride 107 105 Carbon Dioxide 25 26 Anion Gap 7.8 13.8 BUN 20 17 Creatinine 1.00 1.10 Estimated Creat Clear 83 79 Estimated GFR 88 79 Est GFR ( Amer) 106 95 Glucose 104 H 107 H Lactate 0.8 Calcium 8.3 L 8.9 Total Bilirubin 0.2 0.4 AST 21 D 37 ALT 33 D 46 Alkaline Phosphatase 89 102 C-Reactive Protein 18.4 H Total Protein 6.7 8.5 H Albumin 3.9 D 5.0 Globulin 2.8 3.5 H Albumin/Globulin Ratio 1.4 1.4 Lipase 66 Urine Color Urine Appearance Urine pH Ur Specific [place] Urine Protein Urine Glucose (UA) Urine Ketones Urine Blood Urine Nitrate Urine Bilirubin Urine Urobilinogen Ur Leukocyte Esterase Urine RBC Urine WBC Ur Squamous Epith Cells Urine Bacteria Urine Trichomonas Ur C. trach DNA (PCR) HCV Ab ALEJANDRO w/Rflx PCR Qn Negative HIV Ag/Ab Combo Qual Negative U N.gonorrhoeae DNA PCR T. vaginalis (PCR) 10/22/25 19:04 WBC RBC Hgb Hct MCV MCH MCHC RDW Plt Count MPV Neut % (Auto) Lymph % (Auto) [place] % (Auto) Eos % (Auto) Baso % (Auto) Neut # (Auto) Lymph # (Auto) [place] # (Auto) Eos # (Auto) Baso # (Auto) Sodium Potassium Chloride Carbon Dioxide Anion Gap BUN Creatinine Estimated Creat Clear Estimated GFR Est GFR ( Amer) Glucose Lactate Calcium Total Bilirubin AST ALT Alkaline Phosphatase C-Reactive Protein Total Protein Albumin Globulin Albumin/Globulin Ratio Lipase Urine Color Yellow Urine Appearance Clear Urine pH 7.0 Ur Specific [place] 1.025 Urine Protein Negative Urine Glucose (UA) Negative Urine Ketones Negative Urine Blood Trace-i Urine Nitrate Negative Urine Bilirubin Negative Urine Urobilinogen 0.2 Ur Leukocyte Esterase 2+ A Urine RBC Occasional Urine WBC 10-20 Ur Squamous Epith Cells None Urine Bacteria Trace Urine Trichomonas 1+ Ur C. trach DNA (PCR) Negative HCV Ab ALEJANDRO w/Rflx PCR Qn HIV Ag/Ab Combo Qual U N.gonorrhoeae DNA PCR Negative T. vaginalis (PCR) Positive A DS: Diagnosis Discharge Diagnosis (1) Infection due to trichomonas: Status: Acute Code(s): A59.9 - Trichomoniasis, unspecified (2) Low back pain: Status: Acute Code(s): M54.50 - Low back pain, unspecified (3) Acute pyelonephritis: Status: Ruled-out Code(s): N10 - Acute pyelonephritis (4) Epigastric pain: Status: Acute Code(s): R10.13 - Epigastric pain (5) UTI (urinary tract infection): Status: Acute Code(s): N39.0 - Urinary tract infection, site not specified Problem details: present on admission Meds Home Medications and Allergies Home Medications ?Medication ?Instructions ?Recorded ?Confirmed ?Type levofloxacin 250 mg tablet 500 mg PO DAILY 10/22/25 10/23/25 History dexamethasone 4 mg tablet 4 mg PO DAILY #4 tabs 10/23/25 Rx hydrocodone 5 mg-acetaminophen 325 1 tab PO Q4H PRN pain (scale score 10/23/25 Rx mg tablet 7-10) #15 tabs New Prescriptions to Start Prescriptions: dexamethasone Adriel Prasad hydrocodone-acetaminophen Adriel Prasad Allergies Allergy/AdvReac Type Severity Reaction Status Date / Time From KEFLEX Allergy Unknown I-RASH Uncoded 10/28/17 14:56 Discharge Plan Disposition Patient Disposition: Home, Self-Care Condition: Fair Follow up Plan Prescriptions/Medication Reconciliation: New dexamethasone 4 mg tablet 4 mg PO DAILY Qty: 4 0RF hydrocodone-acetaminophen 5-325 mg tablet 1 tab PO Q4H PRN (Reason: pain (scale score 7-10)) Qty: 15 0RF Continued levofloxacin 250 mg tablet 500 mg PO DAILY Rx Instructions: FOR 10 DAYS, STARTED 10/17/25. Problem Reconciliation Problems Reviewed?: Yes Patient Discharge Instructions ACTIVITY: Continue current activity DIET: continue same diet Stand Alone Forms: [facility] Work Release Patient Instructions: Urinary Tract Infection, Kidney Infection, DI for Trichomoniasis Print Language: Armenian Providers Primary Care Provider: Provider,Referral Admit Provider: Adriel Prasad Attending Provider: Adriel Prasad
--- NOTE | 2025-10-25 11:20 | SW/DCPLANNER ---
Phoned patient x2. Patient's number has been disconnected or no longer in service. Reese Winkler
== END 2025-10-23 15:21 | disposition home or self-care (01) ==
LOC: ER 19:06 → 2ND 21:14
PROVIDERS: Nurse Practitioner Acute Care; Admitting Provider Internal Medicine Adolescent Medicine; Emergency Provider Student in an Organized Health Care Education/Training Program; Visit Provider Internal Medicine Adolescent Medicine
DX: N10 Acute pyelonephritis (principal); A59.9 Trichomoniasis, unspecified; F17.200 Nicotine dependence, unspecified, uncomplicated; Z88.6 Allergy status to analgesic agent; N39.0 Urinary tract infection, site not specified; Z79.899 Other long term (current) drug therapy
CPT/HCPCS: 36415; 74177; 80053; 81001; 83605; 83690; 85025; 86140; 86803; 87086; 87389; 87491; 87591; 87661; 96361; 96365; 96367; 96375; 96376; 99285; G0378; J0696; J1100; J1171; J1885; J2405; J2470; J7120; Q9967

== ENCOUNTER 2025-11-01 04:49 | Observation (INO) | payer SELFPAY ==
[2025-11-01 04:58] VITALS: BP 134/66; PULSE 87; RESP 18; TEMP 36.9; O2SAT 98; BMI 49.6
[2025-11-01 05:30] LABS: Albumin Level 4.6 g/dl (3.5-5.0); Chloride 103 mmol/L (98-107); Potassium 4.0 mmoL/L (3.5-5.1); Sodium 138 mmol/L (136-145)
[2025-11-01 05:33] LABS: Alanine Aminotransferase 92 U/L (12-78); Albumin/Globulin Ratio 1.4 (1.1-1.8); Alkaline Phosphatase 90 U/L (38-126); Anion Gap 12.0 mEq/L (5-15); Aspartate Amino Transferase 44 U/L (17-59); Bilirubin,Total 0.5 mg/dl (0.2-1.3); Blood Urea Nitrogen 15 mg/dl (9-20); Carbon Dioxide 27 mmol/L (22.0-30.0); Creatinine Clearance Estimated 96 mL/min (50-200); Creatinine,Serum 0.90 mg/dl (0.66-1.25); Estimated Glomerular Filt Rate 98 ml/min (>60); GFR (African American) 119 ML/MIN (>60); Globulin 3.2 g/dL (1.3-3.2); Total Protein,Serum 7.8 g/dl (6.3-8.2)
[2025-11-01 05:34] LABS: Calcium 9.2 mg/dl (8.4-10.2); Glucose 119 mg/dl (74-100)
[2025-11-01 05:35] LABS: Hematocrit 42.7 % (42.0-52.0); Hemoglobin 14.1 g/dL (14.1-18.0); INR 0.90 (0.9-1.1); Immature Granulocytes % 0.5 %; Mean Corpuscular HGB Conc 33.0 g/dL (31.8-35.4); Mean Corpuscular Hemoglobin 29.8 pg (27.0-31.2); Mean Corpuscular Volume 90.3 fl (80-94); Nucleated Red Blood Cells % 0 %; Platelet Count 376 K/mm3 (142-424); Prothrombin Time 10.1 seconds (10.1-12.5); Red Blood Count 4.73 M/mm3 (4.60-6.20); Red Cell Distribution Width-SD 45.1 fL; White Blood Count 10.9 K/mm3 (4.8-10.8)
[2025-11-01 05:39] LABS: Microscopic, Urine URINE MICROSCOPIC (MICROSCOPIC)
[2025-11-01 05:41] LABS: Bilirubin,Urine Negative (Negative); Color,Urine YELLOW (Yellow); Glucose,Urine (UA) Negative (Negative); Ketones,Urine Negative (Negative); Leukocyte Esterase,Urine Negative (Negative); PH,Urine 7.0 (5.0-8.5); Protein,Urine Negative (Negative); Specific Gravity, Urine 1.020 (1.005-1.030); Urobilinogen,Urine 1.0 EU/dl (0.2)
--- NOTE | 2025-11-01 05:41 | HMH.EDGENADL ---
Discharge Plan Disposition Patient Disposition: Admitted Prescriptions Prescriptions: No Action levofloxacin 250 mg tablet 500 mg PO DAILY Rx Instructions: FOR 10 DAYS, STARTED 10/17/25. dexamethasone 4 mg tablet 4 mg PO DAILY Qty: 4 0RF hydrocodone-acetaminophen 5-325 mg tablet 1 tab PO Q4H PRN (Reason: pain (scale score 7-10)) Qty: 15 0RF Referrals Follow up/Referrals: Provider,Referral, [Primary Care Provider, Medical] - See instructions Clinical Impressions Clinical Impression: Acute upper GI bleed Instructions Patient Instructions: DI for Acute Abdominal Pain Print Language Print Language: Somali Discharge ED Provider: Juan Elaine Adult HPI <Juan Elaine MD - Last Filed: 11/01/25 06:49> General Chief complaint: Abdominal Pain Stated complaint: Day 4 of Stomach Pain; Diarrhea Time Seen by Provider: 11/01/25 05:07 Mode of Arrival: Ambulatory Source of Information: Patient Description of Symptoms (Recalled from ER Triage Doc. by RN): Pt presents with 4 days of diarrhea after several visits to ER (here) and [facility]. Has been dx with kidney stones, fatty liver, UTI, kidney infection and STD over the past month. Pt states he has black runny stools for 4 days associated with RUQ abdominal pain that has increased to 9/10. Pt denies any fever or vomiting. History of Present Illness HPI narrative: 30-year-old male presents to the ER complaining of diarrhea and epigastric abdominal discomfort with associated nausea. Patient reports a few weeks ago he was treated for urinary tract infection, STI, and kidney infection. His symptoms from that have gone away. 4 days after finishing antibiotics, he started developing the symptoms with which he presents today. He started with diarrhea and had at least 9 loose bowel movements the first day of symptoms. He states he had multiple loose bowel movements the second day as well and on day 3 and 4 (the last 2 days) he has had multiple loose bowel movements but they have been black in color. He states he is having nausea but no vomiting. He states he has upper abdominal pain and indicates to the center and left upper quadrant, specifically he does NOT report right upper quadrant pain. He has not had fevers, chills, chest pain, difficulty breathing, dysuria, hematuria, headache, dizziness, or other associated symptoms. He states he was seen at [facility] a few days ago for the diarrhea and was told he has a stomach virus and was also informed that he has kidney stones and fatty liver. Reportedly he was prescribed Zofran, Bentyl, and Imodium. He has not yet picked up the Imodium but has picked up the other medications. He states he has not taken these medications since yesterday. Related Data Home Medications ?Medication ?Instructions ?Recorded ?Confirmed levofloxacin 250 mg tablet 500 mg PO DAILY 10/22/25 10/23/25 Previous Rx's ?Medication ?Instructions ?Recorded dexamethasone 4 mg tablet 4 mg PO DAILY #4 tabs 10/23/25 hydrocodone 5 mg-acetaminophen 325 1 tab PO Q4H PRN pain (scale score 10/23/25 mg tablet 7-10) #15 tabs Allergies Allergy/AdvReac Type Severity Reaction Status Date / Time From [facility] Allergy Unknown I-RASH Uncoded 10/28/17 14:56 [facility] <Juan Elaine MD - Last Filed: 11/01/25 06:49> [facility] Disclaimer: The information contained in this section may have been updated after the patient was seen, as this information can be updated by other users. Medical History (Updated 11/01/25 @ 08:16 by Saulo Fuller MD) No significant medical problems Surgical History (Updated 10/22/25 @ 21:32 by Colette Singer APRN) No significant past surgical history Family History (Updated 10/22/25 @ 21:33 by Colette Singer APRN) Father Cancer Other Diabetes Social History (Updated 10/22/25 @ 21:53 by Jesusita Saba RN) Smoking Status: Current every day smoker alcohol intake: former current occupational status: employed Travel in the last 8 weeks?: None Have you lived/traveled outside [place] in past 30 days?: No Contact w/someone who lives/traveled outside US past 30 days?: No Exposure to someone with infectious disease in past 14 days?: No Do you have a fever (greater than 100.4 F or 38 C)?: No Have you tested positive for COVID-19?: No Exposed to someone with COVID-19 in past 14 days?: No Do you have a sore throat?: No Do you have a cough?: No Do you have any weakness?: No Do you have any diarrhea?: No Are you experiencing any unusual bleeding?: No Do you have any muscle aches/pain?: Yes Do you have any abdominal pain?: No Are you experiencing loss of taste or smell?: No Other Medical History Have you received the Flu Vaccine for this season: No Have you received the Pneumonia Vaccine: No <Juan Elaine MD - Last Filed: 11/01/25 06:49> ROS Obtained: Yes Systems reviewed as appropriate & no additional complaints except as documented per HPI Physical Exam <Juan Elaine MD - Last Filed: 11/01/25 06:49> General General appearance: alert, in no apparent distress and obese Head Head exam: atraumatic and normocephalic Eye Eye exam: Present PERRL and EOMI ENT ENT exam: Present mucous membranes moist Neck Neck exam: Present normal inspection and full ROM Chest Chest inspection: Present symmetric chest wall rise Respiratory Respiratory exam: Present normal lung sounds bilaterally; Absent respiratory distress, wheezes or stridor Cardiovascular Cardiovascular exam: Present regular rate and normal rhythm Abdominal Exam Abdominal exam: Present soft and tenderness (Epigastric, left upper quadrant); Absent distention, guarding or rebound Extremities Exam Extremities exam: Present full ROM and normal capillary refill Neurological Exam Neurological exam: Present alert and oriented X3; Absent motor sensory deficit Psychiatric Psychiatric exam: Present normal affect and normal mood Skin Skin exam: Present warm and dry Medical Decision Making <Juan Elaine MD - Last Filed: 11/01/25 06:49> Medical Records Medical records reviewed: Yes I reviewed the patient's medical records. Screening: Per USPSTF and CDC recommendations, given the prevalence of disease in our region, it is our hospital?s policy to screen for HIV and viral Hepatitis for all patients aged 18 and over and those with ongoing risk factors. Neftali Inquiry Pt receiving controlled substance: No Vital Signs: 11/01/25 04:58 Temperature 98.4 F Temperature Source Oral Pulse Rate [Left] 87 Respiratory Rate 18 Blood Pressure [Right Arm] 134/66 Blood Pressure Mean [Right Arm] 88 Blood Pressure Source [Right Arm] Automatic Cuff Blood Pressure Position [Right Arm] Sitting 02 Sat by Pulse Oximetry 98 Oxygen Delivery Method Room Air Lab Data Lab Results 11/01/25 05:05: WBC 10.9 H, RBC 4.73, Hgb 14.1, Hct 42.7, MCV 90.3, MCH 29.8, MCHC 33.0, RDW 13.7, Plt Count 376, MPV 10.0, Neut % (Auto) 59.9, Lymph % (Auto) 24.9, [place] % (Auto) 10.8 H, Eos % (Auto) 3.4, Baso % (Auto) 0.5, Neut # (Auto) 6.5, Lymph # (Auto) 2.7, [place] # (Auto) 1.2 H, Eos # (Auto) 0.4, Baso # (Auto) 0.1, PT 10.1, INR 0.90, Sodium 138, Potassium 4.0, Chloride 103, Carbon Dioxide 27, Anion Gap 12.0, BUN 15, Creatinine 0.90, Estimated Creat Clear 96, Estimated GFR 98, Est GFR ( Amer) 119, Glucose 119 H, Calcium 9.2, Total Bilirubin 0.5, AST 44, ALT 92 H, Alkaline Phosphatase 90, Troponin I < 0.01, Total Protein 7.8, Albumin 4.6, Globulin 3.2, Albumin/Globulin Ratio 1.4, Lipase 78 11/01/25 05:25: Urine Color Yellow, Urine Appearance Clear, Urine pH 7.0, Ur Specific [place] 1.020, Urine Protein Negative, Urine Glucose (UA) Negative, Urine Ketones Negative, Urine Blood Negative, Urine Nitrate Negative, Urine Bilirubin Negative, Urine Urobilinogen 1.0, Ur Leukocyte Esterase Negative, Ur Squamous Epith Cells Occasional, Urine Bacteria Trace 11/01/25 06:11: Stool Occult Blood Positive A 11/01/25 05:05 11/01/25 05:05 Orders (Tests/Meds): ED MEDICATIONS Generic Name Dose Route Start Last Admin Trade Name Freq PRN Reason Stop Dose Admin Belladonna Alkaloids 60 ml 11/01/25 08:13 Belladonna Alkaloids 60 Ml Ml PO 11/01/25 08:14 ONCE ONE Pantoprazole Sodium 40 mg 11/01/25 08:13 Pantoprazole 40mg Vial IV 11/01/25 08:14 ONCE ONE Sodium Chloride 10 ml 11/01/25 08:13 Sodium Chloride 0.9% 10ml Vial IV 12/01/25 08:12 NEEDED PRN dilute protonix Discontinued Medications Generic Name Dose Route Start Last Admin Trade Name Freq PRN Reason Stop Dose Admin Lactated Ringer's 1,000 mls @ 999 mls/hr 11/01/25 05:21 11/01/25 06:46 Lactated Ringer's 1000 Ml Bag IV 11/01/25 06:21 Infused .Q1H1M ONE Infusion Ondansetron HCl 4 mg 11/01/25 05:38 11/01/25 05:46 Ondansetron 4mg/2ml Vial IV 11/01/25 05:39 4 mg ONCE ONE Administration ORDERS Category Date Time Status CBC w/Auto Diff [Complete Blood Count Auto Diff] Stat Lab 11/01/25 05:05 Completed CMP [Comprehensive Metabolic Panel] Stat Lab 11/01/25 05:05 Completed Diarrhea 23 Panel, PCR Stat Lab 11/01/25 06:11 Received Lipase Stat Lab 11/01/25 05:05 Completed Occult Blood,Stool Stat Lab 11/01/25 06:11 Completed PT INR [Prothrombin Time INR] Stat Lab 11/01/25 05:05 Completed Trop I [Troponin I] Stat Lab 11/01/25 05:05 Completed Troponin I Q3H Lab 11/01/25 08:45 Ordered Troponin I Q3H Lab 11/01/25 11:45 Ordered Urinalysis and Microscopic Stat Lab 11/01/25 05:25 Completed Medical Decision Narrative: In summary, this 30-year-old male with comorbidities described in the HPI presents to the emergency department today with epigastric abdominal pain as well as dark color diarrhea. On initial evaluation patient is hemodynamically stable, afebrile, GCS 15, independently ambulatory, cardiopulmonary exam benign, patient has mild epigastric and left upper quadrant tenderness without rebound or guarding, remainder of abdominal exam is benign. No peripheral edema, brisk capillary refill. Differential diagnosis includes but is not limited to viral syndrome, post antibiotic gut dysbiosis causing diarrhea, consider the possibility of C. difficile, GI bleed, bleeding ulcer, pancreatitis, also consider the possibility of atypical presentation of ACS though I think this is much less likely. Based on these concerns, I ordered hematologic and serum labs, stool studies, urinalysis, lipase. Patient believes he will be able to provide a stool sample since he has had multiple bowel movements already this morning. I have already recommended that the patient NOT take the Imodium that has been previously prescribed due to the risks of slowing down gut function and keeping what ever is making him ill inside the body causing complications and worsening of condition. ECG personally interpreted demonstrates sinus rhythm, rate 75, normal axis, normal NV and QTc, no STEMI. Patient received IV fluids, Zofran for treatment. Labs personally reviewed demonstrate mild leukocytosis though improved from prior, no anemia, normal platelets, PT/INR normal, CMP nonactionable, initial troponin undetectably low less than 0.01 significantly reassuring in the setting of nonischemic ECG and patient's duration of symptoms. I do not believe serial troponin is indicated at this time. Lipase normal at 78. UA negative for findings of infection. I do not have any advanced imaging ordered at this time since patient has an overall relatively unremarkable abdominal exam. He has no rigidity or peritonitic findings and with reassuring labs I have low suspicion for acute surgical pathology. Patient handed off to Dr. Fuller in stable condition pending diarrhea panel and occult blood <Saulo Fuller MD - Last Filed: 11/01/25 08:22> Vital Signs: 11/01/25 04:58 Temperature 98.4 F Temperature Source Oral Pulse Rate [Left] 87 Respiratory Rate 18 Blood Pressure [Right Arm] 134/66 Blood Pressure Mean [Right Arm] 88 Blood Pressure Source [Right Arm] Automatic Cuff Blood Pressure Position [Right Arm] Sitting 02 Sat by Pulse Oximetry 98 Oxygen Delivery Method Room Air Lab Data Lab results reviewed: Yes I reviewed the patient's lab results. Lab Results 11/01/25 05:05: WBC 10.9 H, RBC 4.73, Hgb 14.1, Hct 42.7, MCV 90.3, MCH 29.8, MCHC 33.0, RDW 13.7, Plt Count 376, MPV 10.0, Neut % (Auto) 59.9, Lymph % (Auto) 24.9, [place] % (Auto) 10.8 H, Eos % (Auto) 3.4, Baso % (Auto) 0.5, Neut # (Auto) 6.5, Lymph # (Auto) 2.7, [place] # (Auto) 1.2 H, Eos # (Auto) 0.4, Baso # (Auto) 0.1, PT 10.1, INR 0.90, Sodium 138, Potassium 4.0, Chloride 103, Carbon Dioxide 27, Anion Gap 12.0, BUN 15, Creatinine 0.90, Estimated Creat Clear 96, Estimated GFR 98, Est GFR ( Amer) 119, Glucose 119 H, Calcium 9.2, Total Bilirubin 0.5, AST 44, ALT 92 H, Alkaline Phosphatase 90, Troponin I < 0.01, Total Protein 7.8, Albumin 4.6, Globulin 3.2, Albumin/Globulin Ratio 1.4, Lipase 78 11/01/25 05:25: Urine Color Yellow, Urine Appearance Clear, Urine pH 7.0, Ur Specific [place] 1.020, Urine Protein Negative, Urine Glucose (UA) Negative, Urine Ketones Negative, Urine Blood Negative, Urine Nitrate Negative, Urine Bilirubin Negative, Urine Urobilinogen 1.0, Ur Leukocyte Esterase Negative, Ur Squamous Epith Cells Occasional, Urine Bacteria Trace 11/01/25 06:11: Stool Occult Blood Positive A Orders (Tests/Meds): ED MEDICATIONS Generic Name Dose Route Start Last Admin Trade Name Freq PRN Reason Stop Dose Admin Belladonna Alkaloids 60 ml 11/01/25 08:13 Belladonna Alkaloids 60 Ml Ml PO 11/01/25 08:14 ONCE ONE Pantoprazole Sodium 40 mg 11/01/25 08:13 Pantoprazole 40mg Vial IV 11/01/25 08:14 ONCE ONE Sodium Chloride 10 ml 11/01/25 08:13 Sodium Chloride 0.9% 10ml Vial IV 12/01/25 08:12 NEEDED PRN dilute protonix Discontinued Medications Generic Name Dose Route Start Last Admin Trade Name Freq PRN Reason Stop Dose Admin Lactated Ringer's 1,000 mls @ 999 mls/hr 11/01/25 05:21 11/01/25 06:46 Lactated Ringer's 1000 Ml Bag IV 11/01/25 06:21 Infused .Q1H1M ONE Infusion Ondansetron HCl 4 mg 11/01/25 05:38 11/01/25 05:46 Ondansetron 4mg/2ml Vial IV 11/01/25 05:39 4 mg ONCE ONE Administration ORDERS Category Date Time Status CBC w/Auto Diff [Complete Blood Count Auto Diff] Stat Lab 11/01/25 05:05 Completed CMP [Comprehensive Metabolic Panel] Stat Lab 11/01/25 05:05 Completed Diarrhea 23 Panel, PCR Stat Lab 11/01/25 06:11 Received Lipase Stat Lab 11/01/25 05:05 Completed Occult Blood,Stool Stat Lab 12/23/25 06:11 Completed PT INR [Prothrombin Time INR] Stat Lab 11/01/25 05:05 Completed Trop I [Troponin I] Stat Lab 11/01/25 05:05 Completed Troponin I Q3H Lab 11/01/25 08:45 Ordered Troponin I Q3H Lab 11/01/25 11:45 Ordered Urinalysis and Microscopic Stat Lab 11/01/25 05:25 Completed Medical Decision Narrative: In summary, this 30-year-old male with comorbidities described in the HPI presents to the emergency department today with epigastric abdominal pain as well as dark color diarrhea. On initial evaluation patient is hemodynamically stable, afebrile, GCS 15, independently ambulatory, cardiopulmonary exam benign, patient has mild epigastric and left upper quadrant tenderness without rebound or guarding, remainder of abdominal exam is benign. No peripheral edema, brisk capillary refill. Differential diagnosis includes but is not limited to viral syndrome, post antibiotic gut dysbiosis causing diarrhea, consider the possibility of C. difficile, GI bleed, bleeding ulcer, pancreatitis, also consider the possibility of atypical presentation of ACS though I think this is much less likely. Based on these concerns, I ordered hematologic and serum labs, stool studies, urinalysis, lipase. Patient believes he will be able to provide a stool sample since he has had multiple bowel movements already this morning. I have already recommended that the patient NOT take the Imodium that has been previously prescribed due to the risks of slowing down gut function and keeping what ever is making him ill inside the body causing complications and worsening of condition. ECG personally interpreted demonstrates sinus rhythm, rate 75, normal axis, normal NV and QTc, no STEMI. Patient received IV fluids, Zofran for treatment. Labs personally reviewed demonstrate mild leukocytosis though improved from prior, no anemia, normal platelets, PT/INR normal, CMP nonactionable, initial troponin undetectably low less than 0.01 significantly reassuring in the setting of nonischemic ECG and patient's duration of symptoms. I do not believe serial troponin is indicated at this time. Lipase normal at 78. UA negative for findings of infection. I do not have any advanced imaging ordered at this time since patient has an overall relatively unremarkable abdominal exam. He has no rigidity or peritonitic findings and with reassuring labs I have low suspicion for acute surgical pathology. Patient handed off to Dr. Fuller in stable condition pending diarrhea panel and occult blood Reassessment 8:[address] Fuller I took over from Dr. Elaine. On reassessment the patient has significant epigastric discomfort his abdominal exam is benign but he describes it as pretty severe after he eats in particular. He has been taking NSAIDs leading up to his recent pyelonephritis diagnosis which may have predisposed him to having ulcer. From a historical standpoint he states that it has been black/melena I did not perform the rectal exam. This did come back heme positive. I am concerned he possibly could have a gastric or duodenal ulcer. C. difficile and other invasive causes of colitis certainly are still in the differential as well with the diarrhea that he is described. Diarrhea panel is pending. PPI and GI cocktail have been ordered for his comfort. Patient will need to GI consult once admitted in the hospital. He was ultimately admitted and excepted by hospital medicine. Of note patient is hemodynamically stable and H&H is very stable. Critical Care <Juan Elaine MD - Last Filed: 11/01/25 06:49> Critical Care Time Critical Care Time: No <Saulo Fuller MD - Last Filed: 11/01/25 08:22> Critical Care Time Critical Care Time: Yes Attestation: On 11/01/25, the high probability of a clinically significant, sudden or life threatening deterioration of the following system(s) required my full and direct attention, intervention and personal management. The time I documented below is in addition to time spent performing reported procedures but includes the following listed in this critical care notation. Total Time Total Critical Care Time: 35
[2025-11-01] MEDS: LACTATED RINGERS 1000ML 1,000 ML 999 ML IV (05:44)
[2025-11-01 05:45] LABS: Bacteria,Urine Trace /lpf; Squamous Epithelial Cell,Urine Occasional #/hpf (0-5)
[2025-11-01] MEDS: ONDANSETRON 4MG/2ML VIAL 4 MG IV (05:46)
[2025-11-01 05:49] VITALS: BP 135/54; PULSE 78; O2SAT 96
[2025-11-01 05:49] LABS: Lipase 78 U/L (23-300)
[2025-11-01 06:09] LABS: Troponin I < 0.01 ng/ml (0.00-0.034)
--- NOTE | 2025-11-01 06:09 | ECG_ITS ---
APPROVED REPORT Exam: Resting ECG HR:75 bpm ECG Measurements Heart Rate 75 AXES OK 130 P 40 QRSd 90 QRS 84 QT 372 T -1 QTc 400 Conclusion SINUS RHYTHM NONSPECIFIC T-WAVE ABNORMALITY No STEMI Electronically signed by : SASHA RIVERA, 11/02/2025 07:08:38
[2025-11-01 06:17] LABS: Clostridium Difficile A/B, PCR Not Detected (NotDetected); Cyclospora Cayetanesis Not Detected (NotDetected); Plesimonas Shigalloides, PCR Not Detected (NotDetected); Salmonella, PCR Not Detected (NotDetected); Shiga-like toxin E coli Not Detected (NotDetected); Shigella Enterovasive E coli Not Detected (NotDetected); Vibrio, PCR Not Detected (NotDetected); Yersinia Entercolitica, PCR Not Detected (NotDetected)
[2025-11-01 08:05] LABS: Occult Blood,Stool Positive (Negative)
--- NOTE | 2025-11-01 08:27 | PC.NURSE ---
filter press supervisor notified of the need for a bed to admit the pt to the hospitalist for an upper GI bleed.
[2025-11-01 08:35] VITALS: BP 127/71; PULSE 67; O2SAT 97
[2025-11-01] MEDS: BELLADONNA ALKALOIDS 60 ML ML PO (08:36)
[2025-11-01] MEDS: SODIUM CHLORIDE 0.9% 10ML VIAL 10 ML IV (08:36)
[2025-11-01] MEDS: PANTOPRAZOLE 40MG VIAL 40 MG IV (08:36)
[2025-11-01 08:41] VITALS: BP 132/75; PULSE 69; RESP 14; O2SAT 97
--- NOTE | 2025-11-01 08:47 | PC.NURSE ---
Called report to JEROME Gupta.
[2025-11-01 08:49] VITALS: BP 132/75; PULSE 78; RESP 17; TEMP 37; O2SAT 97
--- NOTE | 2025-11-01 08:50 | INFXCTL.NOTE ---
arrived by w/c from ED
[2025-11-01 08:57] VITALS: BP 142/69; PULSE 74; RESP 16; TEMP 36.6; O2SAT 96; BMI 52.8
--- NOTE | 2025-11-01 09:27 | HMH.OTEV ---
OT Evaluation Rehab OT IP Evaluation Start: 11/01/25 08:24 Freq: ONCE Status: Active Protocol: Document 11/01/25 09:23 DAYANA (Rec: 11/01/25 09:27 [facility] [id number]) Rehab OT IP Assessment Subjective History Pt oriented x 3 on arrival. Pt agreeable to engage in therapy evaluation. Pt admitted on 11/01/25 due to upper GI bleed. History and physical: 30-year-old male presents to the ER complaining of diarrhea and epigastric abdominal discomfort with associated nausea. Patient reports a few weeks ago he was treated for urinary tract infection, STI, and kidney infection. His symptoms from that have gone away. 4 days after finishing antibiotics, he started developing the symptoms with which he presents today. He started with diarrhea and had at least 9 loose bowel movements the first day of symptoms. He states he had multiple loose bowel movements the second day as well and on day 3 and 4 (the last 2 days) he has had multiple loose bowel movements but they have been black in color. He states he is having nausea but no vomiting. He states he has upper abdominal pain and indicates to the center and left upper quadrant, specifically he does NOT report right upper quadrant pain. He has not had fevers, chills, chest pain, difficulty breathing, dysuria, hematuria, headache, dizziness, or other associated symptoms. He states he was seen at [facility] a few days ago for the diarrhea and was told he has a stomach virus and was also informed that he has kidney stones and fatty liver. Reportedly he was prescribed Zofran, Bentyl, and Imodium. He has not yet picked up the Imodium but has picked up the other medications. He states he has not taken these medications since yesterday Subjective Prior to being in the hospital, pt lived at home with his girlfriend and child. Pt is normally independent with all ADLs and IADLs. 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 He does not require any type of AE during daily tasks. He also still drives. Pt also complains of back pain in lower lumbar region. Pt has been experiencing this for ~1 month. Objective Patient Orientation Person,Place,Birthday Right Upper WFL Extremity Gross ROM Left Upper Extremity WFL Gross ROM Bed Mobility bed mobility-scooting,bed mobility - supine/sit Assist Level Independent Transfer Training Sit/Stand Transfer Assist Level Independent Chair Transfer Independent Ability Chair Transfer Sit to/from Ambulatory Technique Chair Transfer None Assistive Devices Lower Body Dressing Independent Ability Performing Toilet Independent Hygiene Ability Overall Commode/ Independent Toilet Transfer Ability Commode/Toilet Sit to/from Ambulatory Transfer Technique Rehab OT IP prob,goals,plan Problems Date of Evaluation: 11/01/25 Rehab Potential Rehab Potential Innapropriate for Skilled Therapy Discharge Plan OT Discharge Plan Pt appears to be at his baseline with functional transfers and ADL independence. Pt can return home with family once he is medically stable. Therapist does recommend an outpatient PT evaluation due to continued lower back pain. Eval Complexity Eval Charge Codes 85021 - Moderate Complexity PHYSICIAN CERTIFICATION: I certify the specified therapy services for Adriel Causey are required, authorized, and reviewed every 30 days.
--- NOTE | 2025-11-01 09:31 | HMH.PTEV ---
Physical Therapy Evaluation Rehab PT IP Evaluation Start: 11/01/25 08:24 Freq: ONCE Status: Active Protocol: Document 11/01/25 09:26 RAINA (Rec: 11/01/25 09:31 RAINA [id number]) Subjective/History History History Per H&P: 30-year-old male presents to the ER complaining of diarrhea and epigastric abdominal discomfort with associated nausea. Patient reports a few weeks ago he was treated for urinary tract infection, STI, and kidney infection. His symptoms from that have gone away. 4 days after finishing antibiotics, he started developing the symptoms with which he presents today. He started with diarrhea and had at least 9 loose bowel movements the first day of symptoms. He states he had multiple loose bowel movements the second day as well and on day 3 and 4 ( the last 2 days) he has had multiple loose bowel movements but they have been black in color. He states he is having nausea but no vomiting. He states he has upper abdominal pain and indicates to the center and left upper quadrant, specifically he does NOT report right upper quadrant pain. He has not had fevers, chills, chest pain, difficulty breathing, dysuria, hematuria, headache, dizziness, or other associated symptoms. He states he was seen at [facility] a few days ago for the diarrhea and was told he has a stomach virus and was also informed that he has kidney stones and fatty liver. Reportedly he was prescribed Zofran, Bentyl, and Imodium. He has not yet picked up the Imodium but has picked up the other medications. He states he has not taken these medications since yesterday. Subjective Subjective Prior to being admitted to [facility], pt reports he is IND with mobility without AD use. Pt works FT. Pt lives with his and children. Pt reports he has had LBP for ~ 1 month. Pt reports this LBP worsens with lifting. [facility] How much help from another person do you currently need... Turning from your None back to your side while in a flat bed without using bedrails? Moving from lying on None back to sitting on the side of a flat bed without using bedrails? Moving to and from a None bed to a chair ( including a wheelchair)? Standing up from a None chair using your arms? (e.g., wheelchair, bedside chair) Walking in hospital None room? Climbing 3-5 steps None with a railing? Mobility Score 24 Mobility Level [facility] Mobility 8 Walk 250 feet or more Mobility Calculator Rehab PT IP Eval Objective Appearance Patient Behavior Appropriate,Cooperative Patient Orientation Person Difficulty following none instructions Speech Pattern Clear Ambulation Patient Able to Yes Ambulate Ambulation Observation IP General Gait No Deviations/Normal Pattern Observation Ambulation Distance 45 (feet) Ambulation Assistive None Device Ambulation Ability Independent Balance Ability to Arise Able, w/o using arms Sitting Balance Steady, safe Standing Balance Narrow stance w/o support Dynamic Sitting Normal Balance Ability Dynamic Standing Normal Balance Ability Transfers Bed Transfer Ability Independent Sit to Stand Bed Independent Transfer Ability Rehab PT IP prob,goals,plan Problems Date of Evaluation: 11/01/25 Rehab Potential Rehab Potential Innapropriate for Skilled Therapy Discharge Plan PT Discharge Plan Pt is IND with all functional mobility and is not appropriate for acute skilled PT at this time. PT recommending pt receive OP PT evaluation to assess his LBP. Eval Complexity Eval Charge Codes 11195 - Moderate Complexity PHYSICIAN CERTIFICATION: I certify the specified therapy services for Adriel Causey are required, authorized, and reviewed every 30 days.
--- NOTE | 2025-11-01 09:45 | P.HPDS_ITS ---
<Statement entered by Adriel Prasad MD - 11/01/25 15:52> Rounded on patient after nurse practitioner. Personally examined and interviewed patient. Agree with exam findings and care plan as documented. General Admission date:: 11/01/25 Discharge date: 11/01/25 *Admission Date: 11/01/25 *Chief complaint: diarrhea, abdominal pain, dark stools *History of present illness: Mr. Coe is a 30-year-old male who presented to the emergency department early this morning with complaints of abdominal pain, nausea, diarrhea, dark stools. He states he has had diarrhea for approximately 4 days and has been to [facility] as well as now here. He has a primary medical history of kidney stones, fatty liver, UTI, pyelonephritis, and trichomonas over the past month. He complains of epigastric pain rating it a 9/10. He denies fever, chills, chest pain, shortness of breath, and vomiting. He was recently admitted to our facility approximately 10 days ago for urinary tract infection, kidney infection, and trichomonas STI. Patient states he completed course of antibiotics and was doing better but then started having the loose bowel moods approximately 4 days ago. He states it has gotten progressively worse and has now turned dark. He was given fluids, Zofran, Bentyl, and Imodium at [facility]. Stool PCR was obtained in the emergency department, overall lab work was unrem arkable, WBC 10.9, no anemia noted, no electrolyte abnormalities, normal kidney function. [facility] Disclaimer: The information contained in this section may have been updated after the patient was seen, as this information can be updated by other users. Medical History (Updated 11/01/25 @ 11:24 by Rachel Sanches APRN) No significant medical problems Surgical History No significant past surgical history Family History Father Cancer Other Diabetes Social History (Updated 11/01/25 @ 08:43 by Asia Modi RN) Smoking Status: Current every day smoker alcohol intake: former current occupational status: employed Travel in the last 8 weeks?: None Have you lived/traveled outside US in past 30 days?: No Contact w/someone who lives/traveled outside US past 30 days?: No Exposure to someone with infectious disease in past 14 days?: No Do you have a fever (greater than 100.4 F or 38 C)?: No Have you tested positive for COVID-19?: No Exposed to someone with COVID-19 in past 14 days?: No Do you have a sore throat?: No Do you have a cough?: No Do you have any weakness?: No Do you have any diarrhea?: No Are you experiencing any unusual bleeding?: No Do you have any muscle aches/pain?: Yes Do you have any abdominal pain?: No Are you experiencing loss of taste or smell?: No Other Medical History Have you received the Flu Vaccine for this season: No Have you received the Pneumonia Vaccine: No Review of Systems Constitutional Constitutional: Denies body ache(s), Denies chills and Denies fever(s) Eyes Eyes: Denies blurry vision ENT Ears, Nose, Mouth, and Throat: Denies dizziness, Denies otalgia and Denies sore throat *Cardiovascular Cardiovascular: Denies chest pain, Denies dyspnea and Denies rapid heart rate *Respiratory Respiratory: Denies cough and Denies dyspnea *Gastrointestinal Gastrointestinal: Reports abdominal pain (Complains of epigastric abdominal pain into the right upper quadrant), Reports change in stool character, Reports cramping, Reports dyspepsia, Reports fecal incontinence, Reports loose stools, Reports melena, Reports nausea and Denies vomiting *Genitourinary Genitourinary: Denies difficulty urinating and Denies dysuria *Musculoskeletal Musculoskeletal: Denies arthralgias and Reports back pain (Bilateral flank pain) *Neurologic Neurologic: Denies confusion and Denies dizziness Psychiatric Psychiatric: Denies confusion Exam Data for Last 24 hours Vital signs and Labs for Last 24 Hours: Temp Pulse Resp BP Pulse Ox O2 Del Method 98 F 74 16 142/69 H 96 Room Air 11/01/25 08:57 11/01/25 08:57 11/01/25 08:57 11/01/25 08:57 11/01/25 08:57 11/01/25 09:00 Laboratory Results - last 24 hr 11/01/25 05:05: WBC 10.9 H, RBC 4.73, Hgb 14.1, Hct 42.7, MCV 90.3, MCH 29.8, MCHC 33.0, RDW 13.7, Plt Count 376, MPV 10.0, Neut % (Auto) 59.9, Lymph % (Auto) 24.9, [place] % (Auto) 10.8 H, Eos % (Auto) 3.4, Baso % (Auto) 0.5, Neut # (Auto) 6.5, Lymph # (Auto) 2.7, [place] # (Auto) 1.2 H, Eos # (Auto) 0.4, Baso # (Auto) 0.1, PT 10.1, INR 0.90, Sodium 138, Potassium 4.0, Chloride 103, Carbon Dioxide 27, Anion Gap 12.0, BUN 15, Creatinine 0.90, Estimated Creat Clear 96, Estimated GFR 98, Est GFR ( Amer) 119, Glucose 119 H, Calcium 9.2, Total Bilirubin 0.5, AST 44, ALT 92 H, Alkaline Phosphatase 90, Troponin I < 0.01, Total Protein 7.8, Albumin 4.6, Globulin 3.2, Albumin/Globulin Ratio 1.4, Lipase 78 11/01/25 05:25: Urine Color Yellow, Urine Appearance Clear, Urine pH 7.0, Ur Specific [place] 1.020, Urine Protein Negative, Urine Glucose (UA) Negative, Urine Ketones Negative, Urine Blood Negative, Urine Nitrate Negative, Urine Bilirubin Negative, Urine Urobilinogen 1.0, Ur Leukocyte Esterase Negative, Ur Squamous Epith Cells Occasional, Urine Bacteria Trace 11/01/25 06:11: Stool Occult Blood Positive A I & O for Last 24 hours: Intake & Output 10/29/25 10/30/25 10/31/25 11/01/25 23:59 23:59 23:59 23:59 Intake Total 1000 / 1000 Balance 1000 / 1000 Weight 135.171 kg Constitutional Constitutional: no acute distress *Routine HEENT Exam Head: Present normocephalic and atraumatic Eye: Present PERRL ENT: Present mucous membranes moist *Routine Neck Exam Neck: Present supple *Routine Respiratory Exam Respiratory: Present CTA bilaterally *Routine Cardiovascular Exam Cardiovascular: Present RRR, Normal S1 and Normal S2 *Routine Abdominal Exam Abdominal: Present soft, normoactive bowel sounds and tenderness (Tender epigastric and right upper quadrant, tender to pannus to palpation of the bilateral flank) *Routine Rectal Exam Rectal:: deferred *Routine Genitalia Exam Genitalia:: deferred *Routine Extremities Exam Extremities: Present pulses intact; Absent edema *Routine Skin Exam Skin: Present dry and warm *Routine Neurological Exam Neurological: Present alert, oriented X3 and moving all extremities Meds Home Medications and Allergies Home Medications ?Medication ?Instructions ?Recorded ?Confirmed ?Type dicyclomine 10 mg capsule 10 mg PO TID 7 days #21 caps 11/01/25 Rx metronidazole 500 mg tablet 500 mg PO BID 7 days #13 t abs 11/01/25 Rx New Prescriptions to Start Prescriptions: dicyclomine Hill,Rachel metronidazole Hill,Rachel Allergies Allergy/AdvReac Type Severity Reaction Status Date / Time cephalexin (From [facility]) Allergy Rash Verified 11/01/25 08:49 Hospital Course Hospital Course Hospital Course: Mr. Stone is a 29-year-old male who presented to the emergency department with epigastric pain, nausea, loose, dark stools x 3-4 days. He was recently admitted to our service for UTI and questionable pyelonephritis. He was also found to have trichomonas at that time and treated with 1 dose of 2 g of Flagyl. Workup in the emergency department was significant for continued abdominal pain and diarrhea, specimen obtained at that time. Other lab work was unremarkable. Hospital medicine was consulted for admission for possible scope due to dark loose stools and epigastric pain. I agreed to admit the patient, plan of care was as follows: #Diarrhea/epigastric pain #Adenovirus/astrovirus/Giardia positive stool PCR ?Patient's stool PCR came back positive for adenovirus, astrovirus, Giardia. Patient given 1 L fluid in the emergency department, continued IV hydration at 125 mL/H. Patient initiated on Flagyl 500 mg twice daily will complete a course of 7 days total. Will discharge home with antibiotics and dicyclomine for abdominal spasms, patient states he has Zofran at home from previous ER visit. Discussed in depth the need for continued hydration, handwashing, cleaning soiled areas. Patient denies fever, chills, shortness of breath, chest pain. Denies urinary symptoms at this time as well. ?GI was consulted and also recommends metronidazole therapy along with dicyclomine for abdominal spasms. Additionally recommended a OTC probiotic for gut health. #Musculoskeletal low back pain ? Patient was treated during his last admission with anti-inflammatories, opiates, and a dose of dexamethasone. Patient was discharged home with dexamethasone for a short oral 5-day course and hydrocodone for severe alejandrina kthrough pain. Patient did receive morphine IV x 1 during admission for low back pain as well as a lidocaine patch. Discussed the use of Tylenol as needed for back pain, patient was assessed by PT/OT during admission to discuss exercises used for low back pain. Discussed referring to physical therapy again, patient states at this time he has no insurance and declined this route of treatment. Discussed the need to follow-up with a primary care provider if pain continues. Educated on not taking NSAIDs at this time due to GI irritation. Results Data Completed and Pending Labs on day of discharge: Labs from last 24 hours 11/01/25 11/01/25 11/01/25 06:11 05:25 05:05 WBC 10.9 H RBC 4.73 Hgb 14.1 Hct 42.7 MCV 90.3 MCH 29.8 MCHC 33.0 RDW 13.7 Plt Count 376 MPV 10.0 Neut % (Auto) 59.9 Lymph % (Auto) 24.9 [place] % (Auto) 10.8 H Eos % (Auto) 3.4 Baso % (Auto) 0.5 Neut # (Auto) 6.5 Lymph # (Auto) 2.7 [place] # (Auto) 1.2 H Eos # (Auto) 0.4 Baso # (Auto) 0.1 PT 10.1 INR 0.90 Sodium 138 Potassium 4.0 Chloride 103 Carbon Dioxide 27 Anion Gap 12.0 BUN 15 Creatinine 0.90 Estimated Creat Clear 96 Estimated GFR 98 Est GFR ( Amer) 119 Glucose 119 H Calcium 9.2 Total Bilirubin 0.5 AST 44 ALT 92 H Alkaline Phosphatase 90 Troponin I < 0.01 Total Protein 7.8 Albumin 4.6 Globulin 3.2 Albumin/Globulin Ratio 1.4 Lipase 78 Urine Color Yellow Urine Appearance Clear Urine pH 7.0 Ur Specific [place] 1.020 Urine Protein Negative Urine Glucose (UA) Negative Urine Ketones Negative Urine Blood Negative Urine Nitrate Negative Urine Bilirubin Negative Urine Urobilinogen 1.0 Ur Leukocyte Esterase Negative Ur Squamous Epith Cells Occasional Urine Bacteria Trace Stool Occult Blood Positive A DS: Diagnosis Discharge Diagnosis (1) Infection due to Giardia lamblia: Status: Acute Code(s): A07.1 - Giardiasis [lambliasis] (2) Diarrhea due to protozoan: Status: Acute Code(s): A07.9 - Protozoal intestinal disease, unspecified (3) Low back pain: Status: Acute Code(s): M54.50 - Low back pain, unspecified (4) Epigastric pain: Status: Acute Code(s): R10.13 - Epigastric pain Discharge Plan Disposition Patient Disposition: Home, Self-Care Condition: Fair Follow up Plan Follow up with: Provider,Referral, MD [Primary Care Provider, Medical] - Enter time for follow up Prescriptions/Medication Reconciliation: New metronidazole 500 mg Tablet 500 mg PO BID 7 Days Qty: 13 0RF dicyclomine 10 mg Capsule 10 mg PO TID 7 Days Qty: 21 0RF Problem Reconciliation Problems Reviewed?: Yes Patient Discharge Instructions ACTIVITY: Continue current activity DIET: advance to your usual diet Additional Instructions: Encourage fluid intake. Patient Instructions: Giardiasis, Gastritis, DI for Gastrointestinal Bleeding Print Language: Slovenian Providers Primary Care Provider: Provider,Referral Admit Provider: Adriel Prasad Attending Provider: Adriel Prasad
[2025-11-01] MEDS: LACTATED RINGERS 1000ML 1,000 ML 125 ML IV (09:51)
[2025-11-01] MEDS: MORPHINE 4MG/ML SYRINGE 4 MG IV ×3 (09:51→15:56)
[2025-11-01] MEDS: NICOTINE 21MG/24HR PATCH 21 MG TD (09:52)
[2025-11-01] MEDS: LIDOCAINE 5% TRANSDERMAL PATCH 1 EACH TD (10:14)
[2025-11-01 10:20] LABS: Adenovirus F 40/41, stool Detected (NotDetected)
--- NOTE | 2025-11-01 13:17 | P.CONS_ITS ---
History of Present Illness *Admission Date: 11/01/25 *History of present illness: Mr. Causey is a 30-year-old gentleman who was admitted with abdominal pain, nausea, vomiting and diarrhea with dark stools. He was admitted earlier this morning. He has had the diarrhea for about 4 days and had previously gone to [facility] ED. He was having some generalized gas and bloating. His stool testing was positive for occult blood. The patient was not anemic and his hemoglobin hematocrit were 14.1 and 42.7. His PCR stool testing was positive for Giardia, adenovirus and astrovirus. The patient still has some crampy abdominal pain. His CT scan of the abdomen and pelvis showed no significant abdominal process and the visualized stomach and bowel were unremarkable with no mucosal thickening. There was no evidence of appendicitis. The patient does state that he drinks filtered water and there is no 1 else in the household that has had gastroenteritis or symptoms suggestive. [facility] Disclaimer: The information contained in this section may have been updated after the patient was seen, as this information can be updated by other users. Medical History (Updated 11/01/25 @ 11:24 by Rachel Sanches APRN) No significant medical problems Surgical History No significant past surgical history Family History Father Cancer Other Diabetes Social History (Updated 11/01/25 @ 08:43 by Asia Modi RN) Smoking Status: Current every day smoker alcohol intake: former current occupational status: employed Travel in the last 8 weeks?: None Have you lived/traveled outside US in past 30 days?: No Contact w/someone who lives/traveled outside US past 30 days?: No Exposure to someone with infectious disease in past 14 days?: No Do you have a fever (greater than 100.4 F or 38 C)?: No Have you tested positive for COVID-19?: No Exposed to someone with COVID-19 in past 14 days?: No Do you have a sore throat?: No Do you have a cough?: No Do you have any weakness?: No Do you have any diarrhea?: No Are you experiencing any unusual bleeding?: No Do you have any muscle aches/pain?: Yes Do you have any abdominal pain?: No Are you experiencing loss of taste or smell?: No Review of Systems ENT Ears, Nose, Mouth, and Throat: Denies dizziness *Neurologic Neurologic: Denies confusion and Denies dizziness Psychiatric Psychiatric: Denies confusion Meds Home Medications and Allergies Home Medications ?Medication ?Instructions ?Recorded ?Confirmed ?Type dicyclomine 10 mg capsule 10 mg PO TID 7 days #21 caps 11/01/25 Rx metronidazole 500 mg tablet 500 mg PO BID 7 days #13 t abs 11/01/25 Rx New Prescriptions to Start Prescriptions: dicyclomine Milad SanchesRachel metronidazole Myron,Rachel Allergies Allergy/AdvReac Type Severity Reaction Status Date / Time cephalexin (From [employer]) Allergy Rash Verified 11/01/25 08:49 Exam (Inpt) Vital signs and Labs for Last 24 Hours: Temp Pulse Resp BP Pulse Ox O2 Del Method 98 F 74 16 142/69 H 96 Room Air 11/01/25 08:57 11/01/25 08:57 11/01/25 08:57 11/01/25 08:57 11/01/25 08:57 11/01/25 10:11 Laboratory Results - last 24 hr 11/01/25 05:05: WBC 10.9 H, RBC 4.73, Hgb 14.1, Hct 42.7, MCV 90.3, MCH 29.8, MCHC 33.0, RDW 13.7, Plt Count 376, MPV 10.0, Neut % (Auto) 59.9, Lymph % (Auto) 24.9, [place] % (Auto) 10.8 H, Eos % (Auto) 3.4, Baso % (Auto) 0.5, Neut # (Auto) 6.5, Lymph # (Auto) 2.7, [place] # (Auto) 1.2 H, Eos # (Auto) 0.4, Baso # (Auto) 0.1, PT 10.1, INR 0.90, Sodium 138, Potassium 4.0, Chloride 103, Carbon Dioxide 27, Anion Gap 12.0, BUN 15, Creatinine 0.90, Estimated Creat Clear 96, Estimated GFR 98, Est GFR ( Amer) 119, Glucose 119 H, Calcium 9.2, Total Bilirubin 0.5, AST 44, ALT 92 H, Alkaline Phosphatase 90, Troponin I < 0.01, Total Protein 7.8, Albumin 4.6, Globulin 3.2, Albumin/Globulin Ratio 1.4, Lipase 78 11/01/25 05:25: Urine Color Yellow, Urine Appearance Clear, Urine pH 7.0, Ur Specific [place] 1.020, Urine Protein Negative, Urine Glucose (UA) Negative, Urine Ketones Negative, Urine Blood Negative, Urine Nitrate Negative, Urine Bilirubin Negative, Urine Urobilinogen 1.0, Ur Leukocyte Esterase Negative, Ur Squamous Epith Cells Occasional, Urine Bacteria Trace 11/01/25 06:11: Stool Occult Blood Positive A, Stl C. cayetanensis PCR Not detected, Stool Rotavirus (PCR) Not detected, Stl Adenov F 40/41 PCR Detected A, Stool Astrovirus (PCR) Detected A, Stool Campylobacter PCR Not detected, Stl C.difficile Tox PCR Not detected, Stool Cryptosporidium PCR Not detected, Stl E.coli Shiga Tox PCR Not detected, Stool E coli O157 PCR Not detected, Stl Enterotoxigenic E PCR Not detected, Stool EPEC (PCR) Not detected, Stool EAEC (PCR) Not detected, Stl E. histolytica PCR Not detected, Stool Giardia Lamblia PCR Detected A, Stool Salmonella PCR Not detected, Stool Sapovirus (PCR) Not detected, Stl P. shigelloides PCR Not detected, Stl Shigella/EIEC PCR Not detected, St Y.enterocolitica PCR Not detected, Stool Vibrio (PCR) Not detected, Stl Vibrio cholerae PCR Not detected, Stl Norovirus GI/GII PCR Not detected I & O for Labs for Last 24 Hours: Intake & Output 10/29/25 10/30/25 10/31/25 11/01/25 23:59 23:59 23:59 23:59 Intake Total 1000 / 1000 Balance 1000 / 1000 Weight 298 lb Comments:: Normoactive bowel sounds, soft, mild gaseous distention, mild tenderness in the lower quadrants, benign abdomen Results Labs 11/01/25 05:05 11/01/25 05:05 Labs: Laboratory Results - last 24 hr 11/01/25 05:05: WBC 10.9 H, RBC 4.73, Hgb 14.1, Hct 42.7, MCV 90.3, MCH 29.8, MCHC 33.0, RDW 13.7, Plt Count 376, MPV 10.0, Neut % (Auto) 59.9, Lymph % (Auto) 24.9, [place] % (Auto) 10.8 H, Eos % (Auto) 3.4, Baso % (Auto) 0.5, Neut # (Auto) 6.5, Lymph # (Auto) 2.7, [place] # (Auto) 1.2 H, Eos # (Auto) 0.4, Baso # (Auto) 0.1, PT 10.1, INR 0.90, Sodium 138, Potassium 4.0, Chloride 103, Carbon Dioxide 27, Anion Gap 12.0, BUN 15, Creatinine 0.90, Estimated Creat Clear 96, Estimated GFR 98, Est GFR ( Amer) 119, Glucose 119 H, Calcium 9.2, Total Bilirubin 0.5, AST 44, ALT 92 H, Alkaline Phosphatase 90, Troponin I < 0.01, Total Protein 7.8, Albumin 4.6, Globulin 3.2, Albumin/Globulin Ratio 1.4, Lipase 78 11/01/25 05:25: Urine Color Yellow, Urine Appearance Clear, Urine pH 7.0, Ur Specific [place] 1.020, Urine Protein Negative, Urine Glucose (UA) Negative, Urine Ketones Negative, Urine Blood Negative, Urine Nitrate Negative, Urine Bilirubin Negative, Urine Urobilinogen 1.0, Ur Leukocyte Esterase Negative, Ur Squamous Epith Cells Occasional, Urine Bacteria Trace 11/01/25 06:11: Stool Occult Blood Positive A, Stl C. cayetanensis PCR Not detected, Stool Rotavirus (PCR) Not detected, Stl Adenov F 40/41 PCR Detected A, Stool Astrovirus (PCR) Detected A, Stool Campylobacter PCR Not detected, Stl C.difficile Tox PCR Not detected, Stool Cryptosporidium PCR Not detected, Stl E.coli Shiga Tox PCR Not detected, Stool E coli O157 PCR Not detected, Stl Enterotoxigenic E PCR Not detected, Stool EPEC (PCR) Not detected, Stool EAEC (PCR) Not detected, Stl E. histolytica PCR Not detected, Stool Giardia Lamblia PCR Detected A, Stool Salmonella PCR Not detected, Stool Sapovirus (PCR) Not detected, Stl P. shigelloides PCR Not detected, Stl Shigella/EIEC PCR Not detected, St Y.enterocolitica PCR Not detected, Stool Vibrio (PCR) Not detected, Stl Vibrio cholerae PCR Not detected, Stl Norovirus GI/GII PCR Not detected Assessment and Plan *Assessment and plan (1) Diarrhea due to protozoan: Status: Acute Category: Medical Code(s): A07.9 - Protozoal intestinal disease, unspecified (2) Infection due to Giardia lamblia: Status: Acute Category: Medical Code(s): A07.1 - Giardiasis [lambliasis] Plan 1. Diarrhea secondary to microbial (protozoal with Giardia and viral (astrovirus and adenovirus) infection. Giardia occurs in the setting of ingestion of the parasite through drinking water and often occurs from drinking water that is unfiltered from streams, [place], etc. It can be obtained through consuming contaminated foods or off of surfaces or from [id number] (fecal oral). Sometimes it is even obtained from animals through contact of their waste. I do feel that his symptoms can be explained by this microbial infection. I would recommend antibiotic therapy with metronidazole or tinidazole. Would recommend prevention tips (handwashing). I would also recommend antispasmodics with dicyclomine for the next 5 to 7 days and possibly addition of probiotic.
--- NOTE | 2025-11-02 09:50 | SW/DCPLANNER ---
Spoke with patient on the phone. patient stated that he is doing good but stomach is still hurting. Patient stated that he is aware of his upcoming appointment. Patient stated that he was able to get his new medicine picked up. Patient stated that he has no concerns or questions. Reese Winkler
== END 2025-11-01 16:14 | disposition home or self-care (01) ==
LOC: ER 08:16 → 2ND 08:38
PROVIDERS: Admitting Provider Internal Medicine Adolescent Medicine; Emergency Provider Emergency Medicine; Visit Provider Internal Medicine Adolescent Medicine
DX: A07.1 Giardiasis [lambliasis] (principal); M54.50 Low back pain, unspecified; R10.13 Epigastric pain; K92.1 Melena; F17.210 Nicotine dependence, cigarettes, uncomplicated; Z87.440 Personal history of urinary (tract) infections; Z86.19 Personal history of other infectious and parasitic diseases
CPT/HCPCS: 80053; 81001; 82272; 83690; 84484; 85025; 85610; 87507; 93005; 96361; 96365; 96366; 96374; 96375; 96376; 97162; 97166; 99285; G0328; G0378; J2270; J2405; J2470; J7120